=== PATIENT | female | born 1965 | race African-American/Black ===

== ENCOUNTER 2024-07-20 12:46 | Emergency (ER) | payer OTHER, SELFPAY ==
[2024-07-20 12:49] VITALS: BP 120/85
--- NOTE | 2024-07-20 12:52 | ED.GENMED ---
ED Provider Triage
<Stephanie Brasher NP - Last Filed: 07/20/24 13:00>
-
Patient seen by provider in Triage?: Seen in Triage
Attestation: A medical screening examination has been initiated by a qualified medical provider. Based on the assessment performed at this time, it has been determined that an emergent medical condition may exist and the patient has been informed
that further medical evaluation and possible additional diagnostic testing may be needed.
HPI: 59-year-old female history NIDDM, HTN on chronic antibiotic for chronic UTI but doesn't know the name. presents with right lower quadrant pain radiating around to the right flank. States pain started 11 days ago while trying to move her bowels
when constipated, felt a sharp pain in the right lower quadrant and ever since then it has been hurting constantly. Laying down helps the pain. Bending over worsens the pain. Pain now 5/10. Gets to 9/10 at times. Denies fever or chills. Denies
N/V/D/C. Denies UTI symptoms
GENERAL: Alert , in no apparent distress
EYE: No visual abnormalities.
NECK: Trachea midline
ENT: No visible abnormalities.
LUNGS: No acute respiratory distress
NEUROLOGICAL: Alert and oriented
SKIN: Skin intact. No visible changes.
MUSCULOSKELETAL: Moving extremities normally
PSYCH: Normal and appropriate interaction.
This is a medical evaluation conducted in person to initiate diagnostic evaluation and provide initial therapeutics. Please see further documentation by the treating clinician.
History of Present Illness
<Stephanie Brasher STUDENT ACCOUNTS MANAGER - Last Filed: 07/20/24 13:00>
General
Chief Complaint: Flank Pain
Time Seen by Provider: 07/20/24 14:16
<Katharine Enciso PA-C - Last Filed: 07/20/24 21:54>
General
Source: patient
Exam Limitations: none
Nursing documentation reviewed up to this point in time: agreed with
History of Present Illness
History of Present Illness:
pt is a 59 y/o F with h/o IDDM
on monjauro
h/o UTI/sepsis previously
previous c sections
here with RLQ pain wrapping to R flank/back x 11 days
started after straining to have BM
no lumps
she says it is mostly with movement
she has not had any h/o kidney stones
shew ent to her PCP 5 days ago and was given flexeril thinking it was MSK
pt has also tried tylenol without relief
she has had normal BMs since, no fever, chills, vomiting, nausea, burning with urination, diarrhea, black or bloody stool
no h/o diverticulitis
pt has no rash
no waekness or radiation down the leg
Past History
<Stephanie Brasher, STUDENT ACCOUNTS MANAGER - Last Filed: 07/20/24 13:00>
Past History
ED Past Medical History: HTN, NIDDM and Psychiatric
Social History
Tobacco: Non-smoker
Alcohol: None
Personal: Single
Living: alone
Employment: Not employed
Review of Systems
<Katharine Enciso PA-C - Last Filed: 07/20/24 21:54>
Review of Systems
Allergies reviewed?: Yes
All Other Systems: Not applicable
Phy Exam
<Katharine Enciso PA-C - Last Filed: 07/20/24 21:54>
Physical Exam
Physical Exam:
GENERAL: Alert , in no apparent distress
EYE: pupils equal and reactive
NECK: Supple
ENT: o/p clr, mmm.
CARDIAC: Regular rate and rhythm .
LUNGS: Clear breath sounds bilaterally, no acute respiratory distress, no wheezes/rales/rhonchi
ABDOMEN: Soft, mild tenderness to the right lower quadrant, no r/g, no cvat, normal bowel sounds
NEUROLOGICAL: Alert and oriented, no focal neuro deficits
SKIN: Warm and dry, skin intact.
MUSCULOSKELETAL: No edema, well perfused. neg tayler's sign
PSYCH: Normal and appropriate interaction.
Course
<Stephanie Brasher, STUDENT ACCOUNTS MANAGER - Last Filed: 07/20/24 13:00>
Orders/Labs/Results
Orders:
Orders
07/20/24 13:12
Complete Blood Count/With Diff Urgent
Comprehensive Metabolic Panel Urgent
Lipase Urgent
07/20/24 14:55
Urinalysis Reflex To Culture Urgent
Date Specimen was Collected: 07/20/24
Time Specimen was Collected: 14:48
Urine Microscopic Reflex Cult Urgent
Urine Culture Urgent
DARIEL Source: U
Specimen Description:
Date Specimen was Collected: 07/20/24
Time Specimen was Collected: 14:48
07/20/24 15:23
CT Abd/Pel (IV only)-DH only Urgent
Comment:
Reason For Exam: RLQ pain to back;
07/20/24 17:15
Ketorolac [Toradol] 15 mg IV NOW STA
Abnormal Lab Results
07/20/24 07/20/24
13:12 14:55
RBC 3.99 L 10^6/uL
(4.20-5.40)
Hct 35.3 L %
(37.0-47.0)
MCH 31.3 H pg
(27.0-31.0)
Glucose 115 H mg/dl
(70-99)
Leukocyte Esterase Rfl 1+ A
(Negative)
Urine Bacteria (Reflex) Few A
(Negative)
07/20/24 13:12
07/20/24 13:12
Vital Signs
Initial and Last Documented VS:
Initial Vital Signs
Temp Pulse Resp BP Pulse Ox
36.8 C 82 20 120/85 99
07/20/24 12:49 07/20/24 12:49 07/20/24 12:49 07/20/24 12:49 07/20/24 12:49
Last Documented Vital Signs
Temp Pulse Resp BP Pulse Ox
36.8 C 82 20 120/85 99
07/20/24 12:49 07/20/24 12:49 07/20/24 12:49 07/20/24 12:49 07/20/24 12:49
<Katharine Enciso PA-C - Last Filed: 07/20/24 21:54>
Orders/Labs/Results
Orders:
Orders
07/20/24 13:12
Complete Blood Count/With Diff Urgent
Comprehensive Metabolic Panel Urgent
Lipase Urgent
07/20/24 14:55
Urinalysis Reflex To Culture Urgent
Date Specimen was Collected: 07/20/24
Time Specimen was Collected: 14:48
Urine Microscopic Reflex Cult Urgent
Urine Culture Urgent
DARIEL Source: U
Specimen Description:
Date Specimen was Collected: 07/20/24
Time Specimen was Collected: 14:48
07/20/24 15:23
CT Abd/Pel (IV only)-DH only Urgent
Comment:
Reason For Exam: RLQ pain to back;
07/20/24 17:15
Ketorolac [Toradol] 15 mg IV NOW STA
Abnormal Lab Results
07/20/24 07/20/24
13:12 14:55
RBC 3.99 L 10^6/uL
(4.20-5.40)
Hct 35.3 L %
(37.0-47.0)
MCH 31.3 H pg
(27.0-31.0)
Glucose 115 H mg/dl
(70-99)
Leukocyte Esterase Rfl 1+ A
(Negative)
Urine Bacteria (Reflex) Few A
(Negative)
07/20/24 13:12
07/20/24 13:12
Vital Signs
Initial and Last Documented VS:
Initial Vital Signs
Temp Pulse Resp BP Pulse Ox
36.8 C 82 20 120/85 99
07/20/24 12:49 07/20/24 12:49 07/20/24 12:49 07/20/24 12:49 07/20/24 12:49
Last Documented Vital Signs
Temp Pulse Resp BP Pulse Ox
36.8 C 82 20 120/85 99
07/20/24 12:49 07/20/24 12:49 07/20/24 12:49 07/20/24 12:49 07/20/24 12:49
<Katharine Enciso PA-C - Last Filed: 07/20/24 21:54>
MDM/Problems Addressed
Differential Diagnosis Includes:
flank pain, kidney stone, msk pain, appe, shingles, uti
MDM/Problems Addressed:
59-year-old female with a history of diabetes on Mounjaro, chronic UTIs on suppressive antibiotics, spinal stenosis presents for right sided abdominal pain that radiates to her right flank for the past 11 days. It started after straining. She has
been able to move her bowels and is not having any nausea vomiting or diarrhea. She also is not having any urinary tract symptoms. Patient says it is worse with movement especially walking but it does not radiate down her leg and is not associate
with any numbness tingling or weakness. She is going to her doctor 5 days ago and was given a prescription for cyclobenzaprine because they thought it was musculoskeletal but it is not helping. Patient otherwise is taking Tylenol.
On exam the patient looks comfortable, has no skin changes in that area, and is able to move her legs normally. She did have slight tenderness to the right flank. There is no CVA tenderness. She was afebrile. Her white count is normal her
glucose is controlled, her urine did have few bacteria and 1+ leukocytes 6-10 whites but also 6-10 squamous cells. Patient has no UTI symptoms. She is comfortable waiting for the urine culture for this. Her CT shows a normal appendix and no
obvious cause for her pain however she did have moderate stool burden and may be some dilation in the right lower quadrant cecum, ascending colon that could represent a mild ileus however the patient is moving her bowels and passing gas and is not
vomiting so I suspect this is not clinically relevant however the stool burden could cause some pain. Will try MiraLAX twice a day for 2 days as needed to help move her bowels and continue Tylenol. If this does not help she could try a dose of
tramadol. Patient will make sure to use stool softeners with this. Return precautions given
<Katharine Enciso PA-C - Last Filed: 07/20/24 21:54>
*Critical Care Note
Total Time (30-74mins, 75-104mins- exclusive of procedures): Not Applicable
ED Attending Note
<Stephanie Brasher NP - Last Filed: 07/20/24 13:00>
-
Portions of this chart may have been created with voice recognition software.� Occasional wrong word or��sound alike� substitutions may have occurred due to the inherent limitations of voice recognition software.
Discharge Plan
Departure
Patient Disposition: Home (Routine Discharge)
Date of Disposition: 07/20/24
Time of Disposition: 17:43
Patient with high blood pressure during this ER visit?: No
Condition: Fair
Covid-19: Not Applicable
Discharge Problem:
Abdominal pain, Constipation
Instructions: Abdominal pain in adults - Discharge instructions
Prescriptions:
New
tramadol 50 mg tablet
50 mg PO Q8H PRN (Reason: Pain) Qty: 12 0RF
No Action
propranolol 60 MG capsule,extended release 24 hr
60 mg PO DAILY
amlodipine 10 MG tablet
10 mg PO DAILY
benazepril 20 MG tablet
20 mg PO DAILY
metformin 500 MG tablet extended release 24 hr
1,000 mg PO BID
Patient Comments:
take 1 tablet in AM and take 2 tablets in PM
rosuvastatin 10 MG tablet
10 mg PO QPM
duloxetine 20 MG capsule,delayed release(DR/EC)
40 mg PO BID
Ozempic 1 mg/dose (4 mg/3 mL) pen injector
1 mg SC WEEKLY
doxycycline hyclate 100 mg Capsule
100 mg PO Q12 Qty: 5 0RF
Rx Instructions:
first dose evening of 05/11
benzonatate 100 mg Capsule
100 mg PO TIDPRN PRN (Reason: Cough) Qty: 30 0RF
cefdinir 300 mg capsule
300 mg PO Q12H Qty: 8 0RF
Rx Instructions:
first dose morning of 05/12
Referrals:
UNKNOWN - PT DOES,NOT KNOW [Family Provider] -
Activity Restrictions/Additional Instructions:
THIS PAIN COULD BE MUSCULAR
YOUR CAT SCAN SHOWED SOME INCIDENTAL FINDINGS BUT ALSO MODERATE STOOL BURDEN, SO THIS COULD BE SOME CONSTIPATION CAUSING YOU DISCOMFORT
TRY MIRALAX ONCE OR TWICE A DAY FOR 2 DASY TO HELP WITH THIS
TYLENOL 2-3 TIMES A DAY
IF THIS DOESN'T HELP, YOU CAN TRY A DOSE OF TRAMADOL 50 MG 2-3 TIMES A DAY NEEDED
THIS MEDICATION MAY WORSEN CONSTIPATINO SO BE SURE TO USE A STOOL SOFTENER
YOUR URINE HAD TRACE BACTERIA, WE WILL CALL YOU IF YOU HAVE A POSITIVE CULTURE AND NEED ANTIBIOTICS
RETURN FOR: FEVER, WORSE PAIN, URINARY CONCERNS,
INABILITY TO WALK, RASH, VOMITING, CONSTIPATION OR ANY CONCERNS.
Interventions
Interventions:
*Risk Screen - Suicide Last Done: 07/20/24 17:41
*General Assessment Last Done: 07/20/24 12:49
*Neglect/Abuse Screening Last Done: 07/20/24 17:41
*ED COVID-19 Vaccine History Last Done: 07/20/24 17:41
*Nursing Disposition Last Done: 07/20/24 18:27
LC-Snmgqr-Vxkvvebvew Assessment Last Done: 07/20/24 17:00
ED-Female Genitourinary Assessment Last Done: 07/20/24 17:00
Discharge Date and Time
Discharge Date/Time: 07/20/24 18:28
Print Language: SLOVAK
[2024-07-20 13:33] LABS: % Basophils 0.3 % (0-2); % Eosinophils 1.2 % (0-6); % Immature Granulocytes 0.1 % (0-0.5); % Lymphocytes 29.5 % (20.5-51.1); % Monocytes 5.9 % (1.7-9.3); Absolute Eosinophils 0.1 10^3/uL (0-0.7); Absolute Lymphocytes 2.3 10^3/uL (1.2-3.4); Absolute Monocytes 0.5 10^3/uL (0.1-0.6); Absolute Neutrophils 4.9 10^3/uL (1.4-6.5); Hematocrit 35.3 % (37.0-47.0); Hemoglobin 12.5 g/dL (12.0-16.0); Mean Corp Hgb Conc. 35.4 g/dL (33.0-37.0); Mean Corpuscular Hgb 31.3 pg (27.0-31.0); Mean Corpuscular Volume 88.5 fL (81.0-99.0); Mean Platelet Volume 9.6 fL (7.4-10.4); Nucleated Red Blood Cells % 0 %; Platelet Count 277 10^3/uL (130-400); Red Blood Cell Count 3.99 10^6/uL (4.20-5.40); Red Cell Dist. Width 13.9 % (11.5-14.5); White Blood Cell Count 7.8 10^3/uL (4.8-10.8)
[2024-07-20 13:46] LABS: ALT (SGPT) 27 U/L (0-35); AST (SGOT) 35 U/L (14-36); Albumin 4.5 g/dl (3.5-5.0); Alkaline Phosphatase 62 U/L (38-126); Blood Urea Nitrogen 15 mg/dl (7-17); Calcium 9.9 mg/dl (8.4-10.2); Carbon Dioxide 30 mmol/L (22-30); Chloride 105 mmol/L (98-107); Glucose 115 mg/dl (70-99); Lipase 128 U/L (23-300); Potassium 4.1 mmol/L (3.5-5.1); Sodium 143 mmol/L (135-145); Total Bilirubin 0.4 mg/dl (0.2-1.3); Total Protein 7.4 g/dl (6.3-8.2); eGFR > 60.00
[2024-07-20 15:59] LABS: Urine Albumin Negative (Neg - Trace); Urine Bilirubin Negative (Negative); Urine Character Clear (Clear); Urine Color Yellow; Urine Glucose Negative (Negative); Urine Ketone Negative (Negative); Urine Leukocyte 1+ (Negative); Urine Nitrite Negative (Negative); Urine Occult Blood Negative (Negative); Urine Urobilinogen Negative (Neg - 1+)
[2024-07-20 17:21] LABS: Urine Bacteria Few (Negative); Urine Red Blood Cell 0-2 /HPF (0-2)
[2024-07-20 17:35] LABS: Glucose - Point of Care 93 mg/dl (70-99)
[2024-07-20] MEDS: TORADOL 15 MG IV (17:38)
== END 2024-07-20 18:28 | disposition home or self-care (01) ==
LOC: EMR 12:46
PROVIDERS: Registered Nurse; EMERGENCY PHYSICIAN Emergency Medicine
DX: R10.31 Right lower quadrant pain (principal); K59.00 Constipation, unspecified; E11.9 Type 2 diabetes mellitus without complications; I10 Essential (primary) hypertension; Z87.440 Personal history of urinary (tract) infections
CPT/HCPCS: 99284; 96374; 74177; 80053; 81003; 81015; 82962; 83690; 85025; 87077; 87086; Q9967

== ENCOUNTER 2025-06-12 17:43 | Day surgery (SDC) | payer OTHER, SELFPAY ==
[2025-06-12] VITALS (13 sets, daily range): BP systolic 112–143; BP diastolic 65–86; PULSE 78; BMI 34.1
--- NOTE | 2025-06-12 13:17 | ED.GENMED ---
History of Present Illness
<Evelyn Soliman PA-C - Last Filed: 06/12/25 18:23>
General
Chief Complaint: Abdominal Pain
Source: patient
Exam Limitations: none
Time Seen by Provider: 06/12/25 13:17
History of Present Illness
History of Present Illness:
60yoF with a history of hypertension, type 2 diabetes, hyperlipidemia, and breast cancer in remission presenting via EMS for evaluation of abdominal pain. She started to experience generalized abdominal pain around 8 AM this morning when she woke
up from sleep. The pain is described as stabbing and is nonradiating. She is also experiencing nausea and has vomited twice. She reports feeling lightheaded but denies any syncope. No prior history of similar pains in the past. She denies any
chest pain, shortness of breath, vertiginous symptoms, headache, fevers, diarrhea, dysuria. Prior abdominal surgeries include a cholecystectomy and a hysterectomy.
Past History
<Evelyn Soliman PA-C - Last Filed: 06/12/25 18:23>
Past History
ED Past Medical History: HTN, NIDDM and Psychiatric
Social History
Tobacco: Non-smoker
Alcohol: None
Personal: Single
Living: alone
Employment: Not employed
Phy Exam
<Evelyn Soliman PA-C - Last Filed: 06/12/25 18:23>
Physical Exam
Physical Exam:
Appears uncomfortable, non-toxic
General Physical Exam
General Presentation: well appearing
General Skin: warm and dry
General Habitus: normal
General Mental: alert
Cardiovascular Exam
Cardiovascular Exam: regular rate/rhythm and no murmur
Pulmonary Exam
Pulmonary Exam: lungs clear, no respiratory distress, no rales, no crackles, no rhonchi and no wheezing
Gastrointestinal Exam
Gastrointestinal Exam: soft, non distended and other (+Generalized abdominal tenderness. No rebound or guarding.)
Neurological Exam
Neurological Exam: alert
[place] Coma Scale
Eye Opening: Spontaneous
Verbal Response: Oriented
Motor Response: Obeys Commands
GCS Total Score: 15
Skin Exam
Skin Exam: normal color and warm/dry
Psychiatric Exam
Psychiatric Exam: normal mood/affect
<Jonathan Thomas DO - Last Filed: 06/12/25 17:08>
[place] Coma Scale
GCS Total Score: 15
Course
<Evelyn Soliman PA-C - Last Filed: 06/12/25 18:23>
Orders/Labs/Results
Orders:
Orders
06/12/25 13:09
EKG [Electrocardiogram (*1)] Urgent
Reason for Study: Tachycardia
EKG- Treatment ONCE
06/12/25 13:30
CT Abd/pelvis W Iv Cont Urgent
Comment:
Reason For Exam: generalized abd pain, vomiting
Cardiac Monitoring- Treatment ONCE
HYDROmorphone [Dilaudid] 0.5 mg IV NOW STA
Ondansetron Injectable [Zofran] 4 mg IV NOW STA
06/12/25 13:37
Complete Blood Count/With Diff Urgent
Comprehensive Metabolic Panel Urgent
Lipase Urgent
Magnesium Urgent
Troponin I Urgent
0.9% Sodium Chloride 1000 ml [Nss] 1,000 ml IV BOLUS
06/12/25 16:34
HYDROmorphone [Dilaudid] 0.5 mg IV NOW STA
Piperacillin/Tazo 4.5 Gram [Zosyn] 4.5 gram in 100 ml IV NOW
06/12/25 17:31
Dexamethasone Sod Phosphate [Decadron] 20 mg .ROUTE .STK-MED ONE
Lidocaine HCl/Pf [Xylocaine-Mpf 1% Vial] 50 mg .ROUTE .STK-MED ONE
Ondansetron Injectable [Zofran] 4 mg .ROUTE .STK-MED ONE
Propofol [Diprivan] 20 ml .ROUTE .STK-MED
Rocuronium [place] [Rocuronium] 50 mg .ROUTE .STK-MED ONE
06/12/25 17:32
Fentanyl Citrate/Pf [Sublimaze] 100 mcg .ROUTE .STK-MED ONE
Midazolam HCl [Versed] 2 mg .ROUTE .STK-MED ONE
06/12/25 17:35
Bupivacaine 0.25%Pf/Epinephrin [Sensorcaine-Epi 0.25%-0.0005] 30 ml .ROUTE .STK-MED ONE
06/12/25 17:48
Fentanyl Citrate/Pf [Sublimaze] 25 mcg IV [id number] PRN
HYDROmorphone [Dilaudid] 0.25 mg IV PACU-Q5MPRN PRN
HYDROmorphone [Dilaudid] 0.5 mg IV PACU-Q5MPRN PRN
Prochlorperazine [Compazine] 5 mg IV PACU-ONCEPRN PRN
Notify MD As Directed
Notify physician if: for SDS patients with known or suspected sleep obstructive sleep apnea, monitor in the
PACU.
Notify MD for any apneic/desaturation episodes
O2 Therapy [RESP] Urgent
Titrate/Wean O2 to maintain O2 sat greater than (%): 92
Special Instructions: -Provide supplemental oxygen to achieve O2 sat of 92% or greater.
-After 15 min, may wean O2 and discontinue if patient is able to maintain O2 sat of 92%
or greater during recovery period.
If patient is a discharge home, without oxygen therapy, notify anestheiologist if
unable to maintain O2 SAT of 92% or greater on room air for MD clearance.
06/12/25 17:54
Admit/Transfer Patient As Directed
Co-Sign Provider:
Level of Care: Post Proc/Surg Recovery
Assign to:: Medical/Surgical
Physician / Group: Tiago Deutsch
Diagnosis: acute appendicitis; lap appy
Reason for Overnight Stay: Require IV med- infection
PRN Pain Medication Management As Directed
May give lesser potent ordered pain med per pt: Yes
preference::
Protocol:: Medication orders for pain may be administered in a
manner that supports deferring to patient preference
when the pt is:
- Requesting an ordered lesser potent pain medication.
Least to most potent pain medications are defined
as: acetaminophen < NSAID < tramadol < opioids
(morphine, oxycodone, hydromorphone).
- Requesting a lesser dose of the same medication IF
ORDERED.
- Requesting a less intrusive route of administration
if both routes are prescribed by the provider (PO <
IV).
06/12/25 17:55
Code Status As Directed
Resuscitation Status: Full Code
06/12/25 18:00
Normosol (Mult Electrolytes) [Normosol-R/Plasmalyte-A] 1,000 ml IV PER PROTOCOL
06/13/25 00:00
Ondansetron Injectable [Zofran] 4 mg IV PACU-ONCEPRN PRN
Abnormal Lab Results
06/12/25
13:37
WBC 18.6 H 10^3/uL
(4.8-10.8)
Abs Immat Gran (auto) 0.1 H 10^3/uL
(0-0.05)
Absolute Neuts (auto) 16.4 H 10^3/uL
(1.4-6.5)
Absolute Monos (auto) 0.8 H 10^3/uL
(0.1-0.6)
Neutrophils % 88.5 H %
(42.2-75.2)
Lymphocytes % 7.0 L %
(20.5-51.1)
Glucose 141 H mg/dl
(70-99)
ALT 37 H U/L
(0-35)
06/12/25 13:37
06/12/25 13:37
Vital Signs
Initial and Last Documented VS:
Initial Vital Signs
Temp Pulse Resp BP Pulse Ox
98.7 F 80 16 141/86 100
06/12/25 13:04 06/12/25 13:04 06/12/25 13:04 06/12/25 13:04 06/12/25 13:04
Last Documented Vital Signs
Temp Pulse Resp BP Pulse Ox
98.7 F 75 24 135/79 95
06/12/25 13:04 06/12/25 16:15 06/12/25 16:15 06/12/25 17:00 06/12/25 17:15
[place];Jonathan Thomas DO - Last Filed: 06/12/25 17:08>
Orders/Labs/Results
Orders:
Orders
06/12/25 13:09
EKG [Electrocardiogram (*1)] Urgent
Reason for Study: Tachycardia
EKG- Treatment ONCE
06/12/25 13:30
CT Abd/pelvis W Iv Cont Urgent
Comment:
Reason For Exam: generalized abd pain, vomiting
Cardiac Monitoring- Treatment ONCE
HYDROmorphone [Dilaudid] 0.5 mg IV NOW STA
Ondansetron Injectable [Zofran] 4 mg IV NOW STA
06/12/25 13:37
Complete Blood Count/With Diff Urgent
Comprehensive Metabolic Panel Urgent
Lipase Urgent
Magnesium Urgent
Troponin I Urgent
0.9% Sodium Chloride 1000 ml [Nss] 1,000 ml IV BOLUS
06/12/25 16:34
HYDROmorphone [Dilaudid] 0.5 mg IV NOW STA
Piperacillin/Tazo 4.5 Gram [Zosyn] 4.5 gram in 100 ml IV NOW
06/12/25 17:31
Dexamethasone Sod Phosphate [Decadron] 20 mg .ROUTE .STK-MED ONE
Lidocaine HCl/Pf [Xylocaine-Mpf 1% Vial] 50 mg .ROUTE .STK-MED ONE
Ondansetron Injectable [Zofran] 4 mg .ROUTE .STK-MED ONE
Propofol [Diprivan] 20 ml .ROUTE .STK-MED
Rocuronium [place] [Rocuronium] 50 mg .ROUTE .STK-MED ONE
06/12/25 17:32
Fentanyl Citrate/Pf [Sublimaze] 100 mcg .ROUTE .STK-MED ONE
Midazolam HCl [Versed] 2 mg .ROUTE .STK-MED ONE
06/12/25 17:35
Bupivacaine 0.25%Pf/Epinephrin [Sensorcaine-Epi 0.25%-0.0005] 30 ml .ROUTE .STK-MED ONE
06/12/25 17:48
Fentanyl Citrate/Pf [Sublimaze] 25 mcg IV [id number] PRN
HYDROmorphone [Dilaudid] 0.25 mg IV PACU-Q5MPRN PRN
HYDROmorphone [Dilaudid] 0.5 mg IV PACU-Q5MPRN PRN
Prochlorperazine [Compazine] 5 mg IV PACU-ONCEPRN PRN
Notify MD As Directed
Notify physician if: for SDS patients with known or suspected sleep obstructive sleep apnea, monitor in the
PACU.
Notify MD for any apneic/desaturation episodes
O2 Therapy [RESP] Urgent
Titrate/Wean O2 to maintain O2 sat greater than (%): 92
Special Instructions: -Provide supplemental oxygen to achieve O2 sat of 92% or greater.
-After 15 min, may wean O2 and discontinue if patient is able to maintain O2 sat of 92%
or greater during recovery period.
If patient is a discharge home, without oxygen therapy, notify anestheiologist if
unable to maintain O2 SAT of 92% or greater on room air for MD clearance.
06/12/25 17:54
Admit/Transfer Patient As Directed
Co-Sign Provider:
Level of Care: Post Proc/Surg Recovery
Assign to:: Medical/Surgical
Physician / Group: Tiago Deutsch
Diagnosis: acute appendicitis; lap appy
Reason for Overnight Stay: Require IV med- infection
PRN Pain Medication Management As Directed
May give lesser potent ordered pain med per pt: Yes
preference::
Protocol:: Medication orders for pain may be administered in a
manner that supports deferring to patient preference
when the pt is:
- Requesting an ordered lesser potent pain medication.
Least to most potent pain medications are defined
as: acetaminophen < NSAID < tramadol < opioids
(morphine, oxycodone, hydromorphone).
- Requesting a lesser dose of the same medication IF
ORDERED.
- Requesting a less intrusive route of administration
if both routes are prescribed by the provider (PO <
IV).
06/12/25 17:55
Code Status As Directed
Resuscitation Status: Full Code
06/12/25 18:00
Normosol (Mult Electrolytes) [Normosol-R/Plasmalyte-A] 1,000 ml IV PER PROTOCOL
06/13/25 00:00
Ondansetron Injectable [Zofran] 4 mg IV PACU-ONCEPRN PRN
Abnormal Lab Results
06/12/25
13:37
WBC 18.6 H 10^3/uL
(4.8-10.8)
Abs Immat Gran (auto) 0.1 H 10^3/uL
(0-0.05)
Absolute Neuts (auto) 16.4 H 10^3/uL
(1.4-6.5)
Absolute Monos (auto) 0.8 H 10^3/uL
(0.1-0.6)
Neutrophils % 88.5 H %
(42.2-75.2)
Lymphocytes % 7.0 L %
(20.5-51.1)
Glucose 141 H mg/dl
(70-99)
ALT 37 H U/L
(0-35)
06/12/25 13:37
06/12/25 13:37
Vital Signs
Initial and Last Documented VS:
Initial Vital Signs
Temp Pulse Resp BP Pulse Ox
98.7 F 80 16 141/86 100
06/12/25 13:04 06/12/25 13:04 06/12/25 13:04 06/12/25 13:04 06/12/25 13:04
Last Documented Vital Signs
Temp Pulse Resp BP Pulse Ox
98.7 F 75 24 135/79 95
06/12/25 13:04 06/12/25 16:15 06/12/25 16:15 06/12/25 17:00 06/12/25 17:15
<Evelyn Soliman PA-C - Last Filed: 06/12/25 18:23>
MDM/Problems Addressed
Differential Diagnosis Includes:
60yoF here with abd pain that began this AM. Associated with n/v and lightheadedness. No CP/SOB. VSS. She is non-toxic appearing but appears uncomfortable. No signs of peritonitis on abdominal exam. Differential diagnosis includes but is not limited
to: pancreatitis, gastroenteritis, gastritis, appendicitis, SBO
Initial ED plan: Triage EKG shows NSR with nonspecific ST changes. Check abdominal labs, troponin, and CT abdomen. IV Zofran, Dilaudid, and fluid bolus for symptoms.
<Evelyn Soliman PA-C - Last Filed: 06/12/25 18:23>
*Pulse Oximetry
SaO2: 100
Oxygen Mode of Delivery: Room air
Patient hypoxic: no
*EKG
Interpreted by ED Provider?: Yes
EKG Intrepretation Date: 06/12/25
Heart Rate: 72
Rate: normal
Rhythm: sinus
[place]: normal axis
Interval: normal interval
QRS Pattern: normal QRS
Ischemia: non-specific ST changes (ST/T wave changes in V3-V6, II, III, aVF )
*Critical Care Note
Total Time (30-74mins, 75-104mins- exclusive of procedures): Not Applicable
<Evelyn Soliman PA-C - Last Filed: 06/12/25 18:23>
Update Note
Update Note:
Labs reveal a leukocytosis with a white count of 18.6. Troponin undetectable. CT shows moderate acute appendicitis with probable appendicoliths. No evidence of perforation or abscess. General surgery team notified and IV Zosyn ordered. Patient
transferred to the OR for appendectomy.
ED Attending Note
<Evelyn Soliman PA-C - Last Filed: 06/12/25 18:23>
-
Portions of this chart may have been created with voice recognition software.� Occasional wrong word or��sound alike� substitutions may have occurred due to the inherent limitations of voice recognition software.
<Jonathan Thomas DO - Last Filed: 06/12/25 17:08>
ED Attending Note
Patient seen and examined by attending physician: Yes
I performed the substantive portion of visit, reviewed & personally made and approve the management plan that is documented in note by myself or ARA.: Yes
ED Attending Note:
I agree with Shey's note
Patient presents with generalized abdominal pain nausea vomiting.Patient noticed the symptoms this morning.
Abdomen: Significant tenderness to palpation lower abdomen particular in the right suprapubic region
Labs show an elevated white blood cell count. CT consistent with acute appendicitis. Shey will discuss with surgery.
Discharge Plan
Departure
Patient Disposition: Admit
Date of Disposition: 06/12/25
Time of Disposition: 17:15
Presentation/result/management discussed w/ accepting MD/DO: Dr. Deutsch
Discharge Problem:
Acute appendicitis
Interventions
Interventions:
*Risk Screen - Suicide Last Done: 06/12/25 13:04
*General Assessment Last Done: 06/12/25 13:04
*Neglect/Abuse Screening Last Done: 06/12/25 13:04
*ED- Fall Risk Assessment Last Done: 06/12/25 13:04
*ED COVID-19 Vaccine History Last Done: 06/12/25 13:04
*ED Influenza Vaccine History Last Done: 06/12/25 13:04
*Nursing Disposition Last Done: 06/12/25 17:41
FV-Vavihz-Cmjbbnvanm Assessment Last Done: 06/12/25 13:42
Discharge Date and Time
Discharge Date/Time: 06/12/25 17:42
[2025-06-12] MEDS: DILAUDID 0.5 MG IV ×2 (13:33→16:47)
[2025-06-12] MEDS: ZOFRAN 4 MG IV (13:33)
[2025-06-12 13:44] LABS: Hematocrit 40.3 % (37.0-47.0); Hemoglobin 14.1 g/dL (12.0-16.0); Mean Corp Hgb Conc. 35.0 g/dL (33.0-37.0); Mean Corpuscular Volume 84.8 fL (81.0-99.0); Nucleated Red Blood Cells % 0 %; Platelet Count 334 10^3/uL (130-400); Red Cell Dist. Width 13.6 % (11.5-14.5)
[2025-06-12] MEDS: NSS 1000 IV ×2 (13:50→20:00)
[2025-06-12 14:20] LABS: ALT (SGPT) 37 U/L (0-35); AST (SGOT) 33 U/L (14-36); Albumin 4.8 g/dl (3.5-5.0); Alkaline Phosphatase 102 U/L (38-126); Blood Urea Nitrogen 11 mg/dl (7-17); Calcium 9.6 mg/dl (8.4-10.2); Carbon Dioxide 24 mmol/L (22-30); Chloride 107 mmol/L (98-107); Estimated Creatinine Clearance 95 ml/min; Glucose 141 mg/dl (70-99); Lipase 100 U/L (23-300); Magnesium 1.8 mg/dl (1.6-2.3); Potassium 3.5 mmol/L (3.5-5.1); Sodium 141 mmol/L (135-145); Total Protein 7.9 g/dl (6.3-8.2); eGFR > 60.00
[2025-06-12 14:31] LABS: Troponin I < 0.012 ng/ml
[2025-06-12] MEDS: ZOSYN 100 IV (16:46)
--- NOTE | 2025-06-12 17:36 | HPS.HSE ---
Family Physician
-
Family Physician: NOT KNOW UNKNOWN - PT DOES
Chief Complaint
-
Abdominal pain
History of Present Illness
Patient is a 60-year-old female who is in her usual baseline state of health until yesterday. She did not take much note of pain yesterday but reports her appetite was beginning to become diminished. When she awoke today she had a generalized
abdominal pain that has continued to increase in severity with subsequent nausea and vomiting. Her pain is greatest in the lower abdomen centrally. No similar episodes like this in the past. She has been moving her bowels as recently as today
which were semiformed.
Medical History
Past Medical History
Past Medical History: Reports Other (Past medical history hypertension, type 2 diabetes, anxiety/depression, recurrent UTIs, VARUN on CPAP, arthritis, glaucoma, seasonal allergies)
Past Surgical History: Reports Other (Cholecystectomy, BRADEN/BSO, )
Social History
Tobacco: Non-smoker
Family History
Family History: Not pertinent
Allergies / Home Medications
Allergies reflects when Allergies were last updated in [facility].
Home Medications with original date entered in [facility]
Allergy/Medication List:
�Medication �Instructions �Recorded �Confirmed �Type
amlodipine 10 mg tablet 10 mg PO DAILY 07/21/20 05/09/23 History
benazepril 20 mg tablet 20 mg PO DAILY 07/21/20 05/09/23 History
duloxetine 20 mg capsule,delayed 40 mg PO BID 07/21/20 05/09/23 History
release
metformin 500 mg tablet,extended 1,000 mg PO BID 07/21/20 05/09/23 History
release 24 hr
propranolol 60 mg capsule,24 60 mg PO DAILY 07/21/20 05/09/23 History
hr,extended release
rosuvastatin 10 mg tablet 10 mg PO QPM 07/21/20 05/09/23 History
semaglutide 1 mg/dose (4 mg/3 mL) 1 mg SC WEEKLY 05/09/23 05/09/23 History
subcutaneous pen injector (Ozempic)
benzonatate 100 mg capsule 100 mg PO TIDPRN PRN Cough #30 caps 05/11/23 Rx
cefdinir 300 mg capsule 300 mg PO Q12H Infection #8 caps 05/11/23 Rx
doxycycline hyclate 100 mg capsule 100 mg PO Q12 #5 caps 05/11/23 Rx
tramadol 50 mg tablet 50 mg PO Q8H PRN Pain #12 tabs 07/20/24 Rx
Allergies
Allergy/AdvReac Type Severity Reaction Status Date / Time
metronidazole (From Flagyl) Allergy Hives Verified 06/12/25 13:08
oxycodone (From Percocet) Allergy Nausea / Verified 06/12/25 13:08
Vomiting
red dye Allergy Hives Verified 06/12/25 13:08
Review of Systems
-
History Source: Patient
A 12 point ROS was completed and negative except as noted: Yes
Physical Exam
Vital Signs
Vital Signs
Temp Pulse Resp BP Pulse Ox
98.7 F 91 25 134/77 95
06/12/25 13:04 06/12/25 14:45 06/12/25 14:45 06/12/25 14:00 06/12/25 14:45
Physical Exam
General: Well Developed, Well Nourished and No Apparent Distress (But acutely ill-appearing)
HEENT: NormoCephalic, Anicteric and Moist mucous membranes
Respiratory: Non Labored Respirations
Cardiac: Regular Rhythm
GI: Soft, Non Distended, Tender (Generalized tenderness on palpation but greatest in the suprapubic area with localized voluntary guarding) and Other
Skin: Warm
Neuro: AO x 3
Psych: Calm
Laboratory Results
-
06/12/25 13:37
06/12/25 13:37
Laboratory Results
Total Bilirubin 0.5 mg/dl (0.2-1.3) 06/12/25 13:37
AST 33 U/L (14-36) 06/12/25 13:37
ALT 37 U/L (0-35) H 06/12/25 13:37
Alkaline Phosphatase 102 U/L (38-126) 06/12/25 13:37
Troponin I < 0.012 ng/ml 06/12/25 13:37
Lipase 100 U/L (23-300) 06/12/25 13:37
Data Reviewed
-
CT Scan: Image Personally Visualized and interpreted (Distended appendix, multiple fecaliths, surrounding inflammatory changes and some free fluid. No organizing fluid collection. No phlegmon.)
Impression/Plan
-
Assessment: 60-year-old female with acute appendicitis.
Reviewed with patient history, examination and CT imaging consistent with acute appendicitis. Discussed both operative and nonoperative management options and associated risks/benefits of approaches. Patient is in agreement to proceed with
appendectomy.
Laparoscopic appendectomy reviewed in detail with the patient. Discussed operative technique utilizing diagrams or drawings, alternative management options, benefits and potential risks such as but not limited to bleeding, infectious or wound
healing complications, iatrogenic injury to surrounding viscera. Discussed the typical postoperative recovery pending operative findings.
Any of the patient's concerns or questions were fully addressed and informed consent was obtained.
Plan: OR for laparoscopic appendectomy.
Empiric antibiotic coverage with Zosyn initiated in emergency department.
Nothing by mouth, IV fluid hydration and supportive care awaiting operative room availability.
SCDs for DVT prophylaxis
--- NOTE | 2025-06-12 17:45 | W.SUR.PREOP ---
Pre-Operative Surgical Note
-
I have examined this patient prior to the performance of the scheduled procedure.
The patient's condition is unchanged from the time of the current History and
Physical and the patient is able to undergo the scheduled procedure.
--- NOTE | 2025-06-12 19:06 | W.IMMPOSTOP ---
Addendum entered and electronically signed by Tiago Deutsch MD 06/12/25 19:13:
#[id number]
Original Note:
Surgical Immed Post Op Note
-
Primary Surgeon: Tiago Deutsch MD
Assisting Surgeon: None
Pre-op Diagnosis: Acute appendicitis
Post-op Diagnosis: Acute appendicitis
Procedure Performed: Laparoscopic appendectomy
Anesthesia Type: GETA +0.25% Marcaine with epinephrine
Specimen / Cultures: Appendix
Estimated Blood Loss: 6 mL
Complications: None immediate
Operative Findings: Acutely inflamed, indurated appendix with some exudate. No purulence. No perforation. No abscess. Appendectomy completed without disruption of the appendix. Numerous adhesions from patient's previous history of and
laparotomy for BRADEN/BSO. Trocar sites placed around adhesions and no lysis required for appendectomy.
[2025-06-12 19:17] LABS: Glucose - Point of Care 164 mg/dl (70-99)
--- NOTE | 2025-06-12 20:00 | PTCARENOTE ---
Patient arrived to [address] [place] [address] from PACU via bed. Pt AAOx3, 3 lap sites intact with surgical glue. VSS, IVF infusing per order. 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 Plan of care and questions answered, assessment on going.
[2025-06-12 20:13] LABS: Glucose - Point of Care 171 mg/dl (70-99)
[2025-06-12] MEDS: ZOSYN 50 IV (21:58)
[2025-06-13 03:40] VITALS: BP 121/73
[2025-06-13] MEDS: ZOSYN 50 IV (04:45)
[2025-06-13] MEDS: NSS 1000 IV (04:47)
[2025-06-13] MEDS: TORADOL 10 MG IV ×2 (05:48→12:52)
[2025-06-13 06:32] LABS: Hematocrit 38.4 % (37.0-47.0); Hemoglobin 13.1 g/dL (12.0-16.0); Mean Corp Hgb Conc. 34.1 g/dL (33.0-37.0); Mean Corpuscular Volume 88.5 fL (81.0-99.0); Platelet Count 308 10^3/uL (130-400); Red Cell Dist. Width 13.7 % (11.5-14.5)
[2025-06-13 07:10] VITALS: BP 140/72
[2025-06-13 07:19] LABS: Blood Urea Nitrogen 14 mg/dl (7-17); Calcium 9.6 mg/dl (8.4-10.2); Carbon Dioxide 26 mmol/L (22-30); Chloride 106 mmol/L (98-107); Estimated Creatinine Clearance 83 ml/min; Glucose 132 mg/dl (70-99); Potassium 4.0 mmol/L (3.5-5.1); Sodium 142 mmol/L (135-145); eGFR > 60.00
[2025-06-13 09:22] LABS: Glucose - Point of Care 113 mg/dl (70-99)
--- NOTE | 2025-06-13 09:46 | W.PN.GS2 ---
Today's Communication / Plan
-
`
Assessment / Plan
-
Assessment: 60-year-old female POD #1 status post lap appendectomy for acute appendicitis
AFVSS
Doing well postop
Plan: Regular diet
DC home with 5-day course of postoperative antibiotics
Subjective Data
-
Date of Service: June 13, 2025
Patient seen and examined.
Requesting food. No nausea, no vomiting, passing flatus.
Postoperative incisional pain mild and well-controlled
Feels ready for discharge
Objective Data
-
Intake and Output
06/12/25 06/13/25 06/14/25
06:59 06:59 06:59
Intake Total 1590 / 1590
Balance 1590 / 1590
Intake:
IV fluids (Total) 1490 / 1490
normosol 50 / 50
IV piggybacks 100 / 100
Other:
Number of approximated MODERATE 1
amounts of urine
Number of approximated LARGE 3
amounts of urine
Vital Signs
Temp Pulse Resp BP Pulse Ox
99.1 F 67 16 140/72 96
06/13/25 07:10 06/13/25 07:10 06/13/25 07:10 06/13/25 07:10 06/13/25 09:00
Lab Results
06/13/25 05:40
06/13/25 05:40
Calcium 9.6 mg/dl (8.4-10.2) 06/13/25 05:40
Magnesium 1.8 mg/dl (1.6-2.3) 06/12/25 13:37
Total Bilirubin 0.5 mg/dl (0.2-1.3) 06/12/25 13:37
AST 33 U/L (14-36) 06/12/25 13:37
ALT 37 U/L (0-35) H 06/12/25 13:37
Alkaline Phosphatase 102 U/L (38-126) 06/12/25 13:37
Total Protein 7.9 g/dl (6.3-8.2) 06/12/25 13:37
Albumin 4.8 g/dl (3.5-5.0) 06/12/25 13:37
Physical Exam
-
NAD AAO x 3
ABD: Softly distended, tenderness localizing to incision sites. Incisions with glue dressings
--- NOTE | 2025-06-13 09:53 | W.DS.TRANS ---
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
-
Discharge Instructions:
Discharge Diagnosis/Procedures Acute appendicitis. Laparoscopic appendectomy
Diet As tolerated,Diabetic, Carb Controlled
Additional Diets Smaller meals initially after surgery as
abdominal bloating and distention are common for
the first few days
Activity No strenuous activity
Driving Restrictions No driving for 2 to 3 days or if using narcotics
Bathing Restrictions OK to Shower
Wound Care Glue at surgical sites typically peels off in 2
to 3 weeks
Instructions:
Stand-Alone Forms:
Changes to Home Medications: No
Discharge Medications:
DC Medications w/original date entered in [email or web address]
amlodipine 10 mg tablet 10 mg PO DAILY 07/21/20
benazepril 20 mg tablet 20 mg PO DAILY 07/21/20
duloxetine 20 mg capsule,delayed release 40 mg PO BID 07/21/20
metformin 500 mg tablet,extended release 24 hr 1,000 mg PO BID 07/21/20
propranolol 60 mg capsule,24 hr,extended release 60 mg PO DAILY 07/21/20
rosuvastatin 10 mg tablet 10 mg PO QPM 07/21/20
semaglutide 1 mg/dose (4 mg/3 mL) subcutaneous pen injector (Ozempic) 1 mg SC WEEKLY 05/09/23
benzonatate 100 mg capsule 100 mg PO TIDPRN PRN Cough #30 caps 05/11/23
acetaminophen 500 mg tablet (Tylenol Extra Strength) 1,000 mg (2 x 500 mg) PO Q6HPRN PRN mild pain #1 tab 06/13/25
ibuprofen 200 mg tablet 400 mg (2 x 200 mg) PO Q6HPRN PRN moderate pain #1 tab 06/13/25
polyethylene glycol 3350 17 gram/dose oral powder (Miralax) 4 g PO DAILY PRN Constipation #119 grams 06/13/25
tramadol 50 mg tablet 25 - 50 mg (0.5 - 1 x 50 mg) PO Q6HPRN PRN severe pain/breakthrough pain #7 tabs 06/13/25
Home Medication Changes
Pending Results: No
[2025-06-13 11:10] VITALS: BP 129/72
[2025-06-13 12:26] LABS: Glucose - Point of Care 135 mg/dl (70-99)
[2025-06-13] MEDS: FLUSH (NSS) 2 FLUSH IV (12:53)
[2025-06-13] MEDS: FLUZONE (6 mos+) 2025-2026 FORMULA 0.5 ML IM (13:41)
--- NOTE | 2025-06-13 14:28 | CM ---
Initial assessment completed with pt at bedside.
Pt is a 60yr old female admitted with apendicitis and had an appendectomy.
At baseline, pt lives alone in an apartment building that has a ramp to enter and an elevator to get to her apartment floor.
Pt uses a Rollator for mobility and has a shower chair, shower bars, and a cut out in the side of the tub.
Pt has a caregiver through [employer]- 9a-9p who helps with bathing, cooking, transportation, and housekeeping. Per pt, she is left alone on the weekends, but her caregiver is available to sometimes come and assist if she needs extra support.
Pt has used [facility] but can't recall the agency. Pt has never been to SNF.
PCP; [facility]
Pharm; [facility] Arevalo for immediate meds and [facility] for ignition specialist
PLAN; Return to home today. Daughter will provide transportation. [facility]
== END 2025-06-13 14:15 | disposition home or self-care (01) ==
LOC: PACU 17:43
PROVIDERS: Physician Assistant; ATTENDING PHYSICIAN Surgery; EMERGENCY PHYSICIAN Emergency Medicine
DX: K35.80 Unspecified acute appendicitis (principal); K38.2 Diverticulum of appendix
CPT/HCPCS: 44970; 74177; 80048; 80053; 82962; 83690; 83735; 84484; 85025; 85027; 88304; 90656; 93005; 94660; 96361; 96365; 96375; 96376; 99285; G0008; Q9967